=== PATIENT | female | born 1935 | race Caucasian/White ===

== ENCOUNTER 2023-09-02 19:00 | Emergency (ER) | payer OTHER, SELFPAY ==
[2023-09-02 19:10] VITALS: BP 168/80
--- NOTE | 2023-09-02 19:31 | ED.GENMED ---
History of Present Illness
General
Chief Complaint: Blood Pressure Problem
Source: patient and other (grAnd daughter who is bedside)
Exam Limitations: none
Time Seen by Provider: 09/02/23 19:19
History of Present Illness
History of Present Illness:
This patient is an 87-year-old female presents emergency department with concerns regarding elevated blood pressure that she noted today when she measured at home, measured in the 170s over 80s and at 1.200/92. Patient has somewhat chronic episodes
of 'pressure and discomfort' 'need to belch' in the center of her chest which she thinks is related to reflux and is unchanged in intensity and frequency. She also frequently for at least the last 6 months has intermittent episodes where her
fingers will get numb. She thinks this is related to how she has been sleeping. However, today around 3 PM she developed discomfort specifically in the left shoulder axilla area lasting about 30 minutes and then resolving completely. This was not
associated with diaphoresis, new dyspnea, nausea, vomiting, jaw pain, neck pain, or other complaints. Patient feels perfectly well at this time.
Past History
Past History
ED Past Medical History: GERD, HTN, Hypercholesterolemia and Other (Breast CA , Positional vertigo)
ED Past Surgical History: Other (Lumpectomy with Radiation)
Social History
Tobacco: Non-smoker
Alcohol: Occasional
Drug: None
Personal:
Living: assisted living
Family History
Family History: CAD and Other (anxiety)
Phy Exam
Physical Exam
Physical Exam:
AAO X3, in nad, pleasant, nontoxic
PERRL, mmm, o/p clear
neck supple
hrt rrr
lung cta, no w/r/r
abd soft, nt, nd
extrem no c/c, tr le edema
skin warm, well perfused
psych pleasant, appropriate
neuro intact
Course
Orders/Labs/Results
Orders:
Orders
09/02/23 19:11
EKG [Electrocardiogram (*1)] Urgent
Reason for Study: Chest Pain
09/02/23 19:12
EKG- Treatment ONCE
09/02/23 19:37
Pulse Ox/cont/shift [RESP] Stat
Quantity: 1
09/02/23 19:38
Cardiac Monitoring- Treatment ONCE
CR Chest - 2 Views Urgent
Comment:
Reason For Exam: chest/shoulder pain
09/02/23 20:20
Complete Blood Count/No Diff Urgent
Comprehensive Metabolic Panel Urgent
Troponin I Urgent
09/02/23 23:15
Troponin I Urgent
Abnormal Lab Results
09/02/23
20:20
RBC 4.07 L 10^6/uL
(4.20-5.40)
Hct 35.2 L %
(37.0-47.0)
Sodium 132 L mmol/L
(135-145)
Glucose 163 H mg/dl
(70-99)
Total Protein 6.2 L g/dl
(6.3-8.2)
09/02/23 20:20
09/02/23 20:20
Vital Signs
Initial and Last Documented VS:
Initial Vital Signs
Temp Pulse Resp BP Pulse Ox
99.3 F 71 18 168/80 98
09/02/23 19:10 09/02/23 19:10 09/02/23 19:10 09/02/23 19:10 09/02/23 19:10
Last Documented Vital Signs
Temp Pulse Resp BP Pulse Ox
99.3 F 58 17 158/65 95
09/02/23 19:10 09/02/23 22:15 09/02/23 22:15 09/02/23 22:14 09/02/23 22:15
MDM/Problems Addressed
Differential Diagnosis Includes:
But not limited to ACS, reflux, muscular strain, nonspecific chest pain, etc.
Chronic conditions affecting care: HTN
*Pulse Oximetry
Patient hypoxic: no
*Critical Care Note
Total Time (30-74mins, 75-104mins- exclusive of procedures): Not Applicable
Data Reviewed
Source: other (Perfusion scan from October 2019 shows normal cardiac perfusion with an EF of 75%)
Update Note
Update Note:
cxr read by me, nad
Patient presents to the Emergency Department with
Number and Complexity of Problems Addressed at the Encounter
� Chronic conditions affecting care:
� Acute Exacerbation and/or Progression of Chronic Illness:
� Differential Diagnosis includes:
Amount and/or Complexity of Data to be Reviewed and Analyzed
� I performed an independent evaluation of and my interpretation is:
EKG:read by me, nsr, no acute ishcmeia
CT:
Xrays:
Laboratory Studies:trop neg X2, labs overall generally unremarkable
Other:
� Review of other/old records reveals:
� Clinical information was obtained by an independent historian:daughter who is at bedside
� Prescriptions/Medications Considered but not given:
� Further testing considered but not performed:
Risk of Complications and/or Morbidity or Mortality of Patient Management
� Social determinants of health affecting care:
� Discussion with other providers (PCP, Hospitalists, Consultants, etc):
� Escalation of care including admission/observation vs risk of discharge considered:bp has spontaneously reduced, pt asx and well appearing. trop times two unremarkable. D/w pt and family import of f/u and reasons to rted
ED Attending Note
-
Portions of this chart may have been created with voice recognition software.� Occasional wrong word or��sound alike� substitutions may have occurred due to the inherent limitations of voice recognition software.
Discharge Plan
Departure
Patient Disposition: Home (Routine Discharge)
Date of Disposition: 09/02/23
Time of Disposition: 23:53
Patient with high blood pressure during this ER visit?: Yes
Condition: Good
Discharge Problem:
Chest pain
Instructions: Chest pain, BLOOD PRESSURE
Prescriptions:
No Action
atorvastatin 20 MG tablet
5 mg PO DAILY
lisinopril 10 mg Tablet
15 mg PO DAILY
brimonidine [Alphagan] 0.2 % Drops
1 drp OPHTHALMIC (EYE) Q8H
escitalopram oxalate [Lexapro] 5 mg Tablet
5 mg PO DAILY
Referrals:
Agnieszka Kirk CRNP [Family Provider] - Next open appointment
Activity Restrictions/Additional Instructions:
IF YOU DEVELOP RECURRENT/NEW CHEST PAIN, TROUBLE BREATHING, FEVER, DIZZINESS, VOMITING, OR OTHER WORRISOME SIGNS, GO TO THE ER IMMEDIATELY!
Interventions
Interventions:
*Risk Screen - Suicide Last Done: 09/02/23 20:07
*General Assessment Last Done: 09/02/23 20:07
*Neglect/Abuse Screening Last Done: 09/02/23 20:07
ED- Fall Risk Assessment Last Done: 09/02/23 20:27
*ED COVID-19 Vaccine History Last Done: 09/02/23 20:07
ED- Cardiac Assessment Last Done: 09/02/23 20:27
ED- Neurological Assessment Last Done: 09/02/23 20:27
ED- Pulmonary Assessment Last Done: 09/02/23 20:27
Discharge Date and Time
Print Language: [place]ESE
[2023-09-02 19:40] VITALS: BP 166/57
[2023-09-02 20:19] VITALS: BP 155/62
[2023-09-02 20:39] LABS: Hematocrit 35.2 % (37.0-47.0); Hemoglobin 12.1 g/dL (12.0-16.0); Mean Corp Hgb Conc. 34.4 g/dL (33.0-37.0); Mean Corpuscular Hgb 29.7 pg (27.0-31.0); Mean Corpuscular Volume 86.5 fL (81.0-99.0); Mean Platelet Volume 9.1 fL (7.4-10.4); Platelet Count 281 10^3/uL (130-400); Red Blood Cell Count 4.07 10^6/uL (4.20-5.40); Red Cell Dist. Width 12.3 % (11.5-14.5); White Blood Cell Count 10.7 10^3/uL (4.8-10.8)
[2023-09-02 20:52] LABS: ALT (SGPT) 15 U/L (0-35); AST (SGOT) 21 U/L (14-36); Albumin 3.9 g/dl (3.5-5.0); Alkaline Phosphatase 40 U/L (38-126); Blood Urea Nitrogen 10 mg/dl (7-17); Calcium 9.7 mg/dl (8.4-10.2); Carbon Dioxide 26 mmol/L (22-30); Chloride 98 mmol/L (98-107); Glucose 163 mg/dl (70-99); Potassium 3.9 mmol/L (3.5-5.1); Sodium 132 mmol/L (135-145); Total Bilirubin 0.4 mg/dl (0.2-1.3); Total Protein 6.2 g/dl (6.3-8.2); eGFR > 60.00
[2023-09-02 21:03] LABS: Troponin I < 0.012 ng/ml
[2023-09-02 21:10] VITALS: BP 131/70
[2023-09-02 22:14] VITALS: BP 158/65
[2023-09-02 23:00] VITALS: BP 150/72
[2023-09-02 23:49] LABS: Troponin I < 0.012 ng/ml
[2023-09-03] VITALS: BP 152/60
== END 2023-09-03 00:11 | disposition home or self-care (01) ==
LOC: EMR 19:00
PROVIDERS: EMERGENCY PHYSICIAN Emergency Medicine; FAMILY PHYSICIAN Nurse Practitioner
DX: R07.89 Other chest pain (principal); K21.9 Gastro-esophageal reflux disease without esophagitis; I10 Essential (primary) hypertension; E78.00 Pure hypercholesterolemia, unspecified; Z82.49 Family history of ischemic heart disease and other diseases of the circulatory system; Z85.3 Personal history of malignant neoplasm of breast
CPT/HCPCS: 99283; 71046; 80053; 84484; 85027; 93005

== ENCOUNTER → 2023-09-30 14:49 | Outpatient (REF) | payer OTHER, SELFPAY | LOC: RAD 14:49 | PROVIDERS: ATTENDING PHYSICIAN Nurse Practitioner | DX: M54.12 Radiculopathy, cervical region (principal) | CPT/HCPCS: 72052 ==

== ENCOUNTER 2024-06-03 17:21 | Emergency (ER) | payer OTHER, SELFPAY ==
[2024-06-03 17:33] VITALS: BP 196/70
--- NOTE | 2024-06-03 18:20 | ED.GENMED ---
History of Present Illness
<Santi Singh DO - Last Filed: 06/03/24 18:20>
General
Chief Complaint: Fall
Time Seen by Provider: 06/03/24 17:40
<RGOERS Ivory - Last Filed: 06/03/24 20:11>
General
Source: patient
Exam Limitations: none
Nursing documentation reviewed up to this point in time: agreed with
History of Present Illness
History of Present Illness:
Patient is an 88-year-old female who presents to the ER for evaluation of trip and fall. Patient was walking down a step outside and tripped and fell. Patient reports she hit her lip on the ground along with her right hand and left knee. She
denies any actual head injury. No loss of consciousness no neck pain or back pain she denies any headache. She complains of a laceration to her upper left lip that has not bleeding since. She denies any bony pain to her left knee or right wrist
hand.
She is not on blood thinners.
Past History
<Santi Singh DO - Last Filed: 06/03/24 18:20>
Past History
ED Past Medical History: GERD, HTN, Hypercholesterolemia and Other (Breast CA , Positional vertigo)
ED Past Surgical History: Other (Lumpectomy with Radiation)
Social History
Tobacco: Non-smoker
Alcohol: Occasional
Drug: None
Personal:
Living: assisted living
Family History
Family History: CAD and Other (anxiety)
Review of Systems
<ROGERS Ivory - Last Filed: 06/03/24 20:11>
Review of Systems
Allergies reviewed?: Yes
All Other Systems: ROS reviewed and negative except as documented in HPI and ROS
Constitutional: Reports weight gain
Respiratory: Reports no symptoms
Cardiac: Reports no symptoms
: Reports no symptoms
Musculoskeletal: Reports no symptoms
Skin: Reports other (Laceration to left upper lip, abrasion to left knee , laceration to right hand)
Neurological: Reports no symptoms; Denies dizzy or headache
Psychiatric: Reports no symptoms
Phy Exam
<ROGERS Ivory - Last Filed: 06/03/24 20:11>
General Physical Exam
General Presentation: no apparent distress
General age: appears stated age
General Skin: dry
General Habitus: normal
General Mental: alert
General Hydration: appears well hydrated
ENT Exam
ENT Exam: other (left upper lip with 2 cm full thickness laceration not involving the reece border )
Neurological Exam
Neurological Exam: alert and oriented x3
Musculoskeletal Exam
Musculoskeletal Exam: full ROM and other (+ abrasion to left knee mild ecchymosis no bony tenderness swelling full flexion extension. Right dorsal hand with V-shaped flap superficial laceration)
Skin Exam
Skin Exam: normal color and warm/dry
Psychiatric Exam
Psychiatric Exam: normal mood/affect
Course
<Santi Singh DO - Last Filed: 06/03/24 18:20>
Orders/Labs/Results
Orders:
Orders
06/03/24 18:39
CT Head W/o Iv Contrast Urgent
Comment:
Reason For Exam: trauma
06/03/24 19:45
Vital Signs- Treatment ONCE
Frequency: Once
Vital Signs
Initial and Last Documented VS:
Initial Vital Signs
Temp Pulse Resp BP Pulse Ox
98.4 F 67 18 196/70 97
06/03/24 17:33 06/03/24 17:33 06/03/24 17:33 06/03/24 17:33 06/03/24 17:33
Last Documented Vital Signs
Temp Pulse Resp BP Pulse Ox
98.4 F 67 18 196/70 97
06/03/24 17:33 06/03/24 17:33 06/03/24 17:33 06/03/24 17:33 06/03/24 17:33
<ROGERS Ivory - Last Filed: 06/03/24 20:11>
Orders/Labs/Results
Orders:
Orders
06/03/24 18:39
CT Head W/o Iv Contrast Urgent
Comment:
Reason For Exam: trauma
06/03/24 19:45
Vital Signs- Treatment ONCE
Frequency: Once
Vital Signs
Initial and Last Documented VS:
Initial Vital Signs
Temp Pulse Resp BP Pulse Ox
98.4 F 67 18 196/70 97
06/03/24 17:33 06/03/24 17:33 06/03/24 17:33 06/03/24 17:33 06/03/24 17:33
Last Documented Vital Signs
Temp Pulse Resp BP Pulse Ox
98.4 F 67 18 196/70 97
06/03/24 17:33 06/03/24 17:33 06/03/24 17:33 06/03/24 17:33 06/03/24 17:33
Procedures
<ROGERS Ivory - Last Filed: 06/03/24 20:11>
Laceration Closure
Left Upper Lip:
Status of Wound: clean
Size of Wound in cm: 2
Description of Wound Edges: sharp
Preparation: cleaned with saline
Anesthesia: 1% Lidocaine with epi
Revision/Debridement: routine- no revision
Type of Closure: single layer closure and interrupted sutures
Skin Closure Material: 6-0 vicryl
Number of sutures: 3
Additional information:
Left dorsal hand : Superficial flap laceration approximately 5 cm V-shaped repaired with Steri-Strips
<RGOERS Ivory - Last Filed: 06/03/24 20:11>
*Radiology
Radiology exam reviewed: radiology read reviewed
*Critical Care Note
Total Time (30-74mins, 75-104mins- exclusive of procedures): Not Applicable
ED Attending Note
<Santi Singh DO - Last Filed: 06/03/24 18:20>
-
Portions of this chart may have been created with voice recognition software.� Occasional wrong word or��sound alike� substitutions may have occurred due to the inherent limitations of voice recognition software.
Discharge Plan
Departure
Patient Disposition: Home (Routine Discharge)
Date of Disposition: 06/03/24
Time of Disposition: 19:44
Patient with high blood pressure during this ER visit?: Yes
Discharge Problem:
Laceration, Abrasion
Instructions: Laceration Repair With Stitches (DC), Wound care - ED discharge instructions, BLOOD PRESSURE
Prescriptions:
No Action
atorvastatin 20 MG tablet
5 mg PO DAILY
lisinopril 10 mg Tablet
15 mg PO DAILY
brimonidine [Alphagan] 0.2 % Drops
1 drp OPHTHALMIC (EYE) Q8H
escitalopram oxalate [Lexapro] 5 mg Tablet
5 mg PO DAILY
Referrals:
Agnieszka Kirk CRNP [Family Provider] -
Activity Restrictions/Additional Instructions:
As discussed for laceration to right hand: keep clean and dry for 24 hours after 24 hours and may lightly wet the wound. Do not remove Steri-Strips. Trim Steri-Strips as needed they will fall off on their own. Please closely follow-up with family
doctor in the next several days for wound check.
For lip laceration you may ice over the affected area for the next 24 hours 20 minutes at a time several times a day. The sutures are absorbable and should fall out on their own. If they do not fall out in the next 10 days please follow-up with
your family doctor
Interventions
Interventions:
*Risk Screen - Suicide Last Done: 06/03/24 17:33
*General Assessment Last Done: 06/03/24 17:33
*Neglect/Abuse Screening Last Done: 06/03/24 17:37
*ED- Fall Risk Assessment Last Done: 06/03/24 17:37
*ED COVID-19 Vaccine History Last Done: 06/03/24 17:33
ED-Musculoskeletal Assessment Last Done: 06/03/24 17:37
ED- Neurological Assessment Last Done: 06/03/24 17:37
ED-Skin Assessment Last Done: 06/03/24 17:37
Discharge Date and Time
Print Language: [place]
[2024-06-03 20:00] VITALS: BP 168/95
== END 2024-06-03 20:17 | disposition home or self-care (01) ==
LOC: EMR 17:21
PROVIDERS: EMERGENCY PHYSICIAN Emergency Medicine; FAMILY PHYSICIAN Nurse Practitioner
DX: S01.511A Laceration without foreign body of lip, initial encounter (principal); S61.411A Laceration without foreign body of right hand, initial encounter; S80.212A Abrasion, left knee, initial encounter; S80.02XA Contusion of left knee, initial encounter; W10.8XXA Fall (on) (from) other stairs and steps, initial encounter; E78.00 Pure hypercholesterolemia, unspecified; I10 Essential (primary) hypertension; Z85.3 Personal history of malignant neoplasm of breast
CPT/HCPCS: 12011; 99284; 70450

== ENCOUNTER → 2024-12-12 13:37 | Outpatient (REF) | payer OTHER, SELFPAY | LOC: WDC 13:37 | PROVIDERS: ATTENDING PHYSICIAN Nurse Practitioner | DX: Z12.31 Encounter for screening mammogram for malignant neoplasm of breast (principal) | CPT/HCPCS: 77063; 77067 ==